=== PATIENT | female | born 1960 | race Caucasian/White ===

== ENCOUNTER 2024-04-13 10:52 | Outpatient (REF) | payer BC, SELFPAY ==
[2024-04-13 12:22] LABS: Bilirubin Negative (Negative); Blood Negative (Negative); Clarity Sl Cloudy (Clear); Glucose Negative (Negative); Ketones Negative (Negative); Leukocyte Esterase Trace (Negative); Nitrite Negative (Negative); Specific Gravity >= 1.030 (1.005-1.025); Urobilinogen 0.2 mg/dL (Up to 0.2); pH 5.5 (5-8)
[2024-04-13 12:36] LABS: Bacteria Moderate HPF (Negative); C & S Indicated? No; Crystals Negative HPF (Negative); Epithelial Cells Many HPF (Negative); Mucus Trace (Negative); RBC 0-2 HPF (0-2)
== END 2024-04-13 10:53 | disposition home or self-care (01) ==
LOC: LBN 10:52
PROVIDERS: PCP Nurse Practitioner Family; Visit Provider Nurse Practitioner Family
DX: R39.9 Unspecified symptoms and signs involving the genitourinary system (principal)
CPT/HCPCS: 81003; 81015

== ENCOUNTER 2024-05-12 02:10 | Outpatient (CLI) | payer BC, SELFPAY ==
--- NOTE | 2024-05-12 07:15 | DI.MAMMO_ITS ---
Exam(s) MAMMO SCREENING EXAM: MAMMO SCREENING CLINICAL HISTORY: screening,Z12.39 TECHNIQUE: Mammograms were interpreted according to the usual protocol including computer analysis w [employer] CAD system, tomosynthesis and C-view imaging. COMPARISON: 2014 through 2021 FINDINGS: The breasts are composed of scattered fibroglandular densities, Breast Density category B. No suspicious masses or suspicious microcalcifications are seen. No skin thickening or abnormal axillary lymph nodes are seen. There has been no significant change from prior exams. IMPRESSION: BI-RADS Category 1, Negative mammogram Yearly screening mammography is recommended. Breast Density - Category B, scattered fibroglandular densities. A negative radiographic report should not delay biopsy if a dominant or clinically suspicious mass is present. Up to ten percent of cancers are not identified on mammography. A negative report may reinforce clinical impression. Adenosis and dense breasts may obscure an underlying neoplasm. False positive reports average 6 to 10%. Patient will receive a letter notifying them of these results.
== END 2024-05-12 02:30 ==
LOC: DI 02:10
PROVIDERS: PCP Nurse Practitioner Family; Visit Provider Nurse Practitioner Family
DX: Z12.31 Encounter for screening mammogram for malignant neoplasm of breast (principal); R92.323 Mammographic fibroglandular density, bilateral breasts
CPT/HCPCS: 77063; 77067

== ENCOUNTER 2024-06-07 04:56 | Outpatient (CLI) | payer BC, SELFPAY ==
--- NOTE | 2024-06-07 14:20 | W.NUTRFU ---
Date of service: 06/07/24 Time of Service: 13:00 Nutrition Note NOTE: Trinh requested nutrition referral from provider for another resource to help her with her current weight loss goals. Trinh weighed 271lbs with no shoes, clothes on, no jacket. This is almost another 3 pound weight loss from her provider appt on 05/21/24. She is on 5mg weekly dose of terzepatide and finding no negative side effects (experienced some chills at initiation but has subsided). She affirms less appetite and quicker to fullness, less thinking about food. She is not completely numbers-focused in her approach - tends to work more on habits. Working on increasing physical activity now that she is s/p R knee replacement from last February. She reports no food allergies. She denies being a selective eater except she will not eat seafood - she takes a fish oil supplement. We reviewed nutrition recommendations: -periodically would be a good idea to track added sugar intake and see where she lands in comparison with recommendation of 25g or less per day -periodically track fiber intake and compare with recommendation of at least 25g per day -periodically track protein intake and compare with recommendation of at least 100g per day and ideally 135g per day form lean animal and plant sources. -consider 1800kcals as current goal for daily calories when looking into sample menus -consider taking MVI supplement (make sure it contains iodine in it) -Consider vitamin D3 supplementation at 4,000IU during winter and 2,000IU summer months -aim for adequate calcium intake by choosing lowfat dairy, broccoli, almonds, beans and other high Ca sources along with weight bearing exercise routinely. reviewed some sample menus with her, but Trinh already doing things great and avoiding many pitfalls such as sugary beverages, eating out/take out food, avoiding greasy/fried foods and trying to eat 3 meals and limiting snacks to 2-3 per day. Encouraged snack times to include a veggie and protein source most opportunities. Trinh took my card to contact for any additional support Time Spent in Nutritional Counseling and Treatment: 25 min
== END 2024-06-07 04:57 | disposition home or self-care (01) ==
LOC: DS 04:57
PROVIDERS: PCP Nurse Practitioner Family; Visit Provider Dietitian, Registered
DX: Z71.3 Dietary counseling and surveillance (principal)
CPT/HCPCS: 00123; 97802

== ENCOUNTER 2024-07-08 15:44 | Outpatient (CLI) | payer BC, SELFPAY ==
--- NOTE | 2024-07-08 13:15 | DI.RAD_ITS ---
Exam(s) XR KNEE RT 3V AP,LAT,SCHUYLER EXAM: XR KNEE RT 3V AP,LAT,SCHUYLER CLINICAL HISTORY: RIGHT KNEE PAIN. TECHNIQUE: 2D digital imaging was performed. Three views. COMPARISON: No exams were available for comparison FINDINGS: BONES: No acute fracture is present. Total knee prosthesis. Mild lucency around the tibial componen t which could indicate loosening. There are no prior comparison exams. JOINTS: Lateral patellar tilt and lateral patellar deviation.. No joint effusion is seen. SOFT TISSUE: Normal. IMPRESSION: Lucency adjacent to the tibial component of the prosthesis could indicate loosening. DATA REPOSITORY: RADIATION DOSE DELIVERED:
== END 2024-07-08 15:45 | disposition home or self-care (01) ==
LOC: DIORS 15:44
PROVIDERS: PCP Nurse Practitioner Family; Visit Provider Student in an Organized Health Care Education/Training Program
DX: Z96.651 Presence of right artificial knee joint (principal); Z47.1 Aftercare following joint replacement surgery
CPT/HCPCS: 73562

== ENCOUNTER 2024-07-20 03:54 | Outpatient (CLI) | payer BC, MEDICARE, SELFPAY ==
[2024-07-20 13:21] LABS: ESR 12 mm/hr (0-30)
[2024-07-20 14:24] LABS: TSH (W/Ref FT4) 3.61 uIU/mL (0.36-3.74)
[2024-07-20 14:36] LABS: C-Reactive Protein < 0.50 mg/dL (<or=0.5)
== END 2024-07-20 03:55 | disposition home or self-care (01) ==
LOC: LBO 03:57
PROVIDERS: PCP Nurse Practitioner Family; Visit Provider Student in an Organized Health Care Education/Training Program
DX: E03.9 Hypothyroidism, unspecified (principal); Z96.651 Presence of right artificial knee joint
CPT/HCPCS: 36415; 85652; 84443; 86140

== ENCOUNTER 2024-11-05 02:54 | Outpatient (CLI) | payer BC, SELFPAY ==
[2024-11-05 08:43] LABS: Calculated LDL 83 mg/dL (<100); Cholesterol 166 mg/dL (<200); HDL Cholesterol 73 mg/dL (>or=50); Triglyceride 52 mg/dL (<150)
[2024-11-05 09:14] LABS: Hemoglobin A1C 5.3 % (<5.7)
== END 2024-11-05 02:55 | disposition home or self-care (01) ==
LOC: LBO 02:54
PROVIDERS: PCP Nurse Practitioner Family; Referring Provider Nurse Practitioner Family; Visit Provider Nurse Practitioner Family
DX: Z00.00 Encounter for general adult medical examination without abnormal findings (principal)
CPT/HCPCS: 36415; 80061; 83036

== ENCOUNTER 2024-12-12 23:34 | Emergency (ER) | payer BC, SELFPAY ==
[2024-12-12 23:36] VITALS: BP 139/88; PULSE 72; RESP 18; O2SAT 98
--- NOTE | 2024-12-12 23:48 | W.ED.GENAD ---
Discharge Plan Disposition Patient Disposition: Home Condition: Good Discharge Details Clinical Impression: Tick bite Primary Care Provider: Amy Hayes ED Provider: Brandon Ramirezs and New Rx's Prescriptions: Continued levothyroxine 137 mcg tablet 137 mcg PO DAILY Qty: 90 3RF tirzepatide (weight loss) 12.5 mg/0.5 mL pen injector 12.5 mg subcut QWEEK Qty: 2 0RF Discharge Instructions Additional Instructions: This looks more like a local reaction to the bite. Warm compresses on and off during the day for the next few days. Your laboratory studies are reassuring at this time. A tick and Lyme panel has been sent and is pending. Follow-up with primary care. Return to ED for high spiking fevers, confusion, severe worsening headache, other concerns. Referrals: Amy Hayes APRN [Primary Care Provider] - [facility] General Mode of arrival: ambulatory. Date/Time Provider Initiated Documentation: 12/12/24 23:48. Limitations to Documentation: no limitations. Information obtained by: patient and RN notes reviewed. HPI Narrative: Patient presents to ED for evaluation of potential bull's-eye lesion associated with tick bite. Patient had found a tick on the back of her left thigh Friday. This was removed by her and thought to be intact. She was treated with prophylactic dose of doxycycline. She was told to watch for any evidence of a rash. Tonight she noted some erythema around the bite itself. She has had mild headache today, some joint pain in the knee and back. She denies fever. She has some pain around the bite itself. Related Data Home Medications ?Medication ?Instructions ?Recorded ?Confirmed levothyroxine 137 mcg tablet 137 mcg PO DAILY #90 tabs 07/20/24 12/12/24 tirzepatide (weight loss) 12.5 12.5 mg (0.5 mL) subcut QWEEK #2 mL 11/30/24 12/12/24 mg/0.5 mL subcutaneous pen injector Previous Rx's ?Medication ?Instructions ?Recorded levothyroxine 137 mcg tablet 137 mcg PO DAILY #90 tabs 07/20/24 tirzepatide (weight loss) 12.5 12.5 mg (0.5 mL) subcut QWEEK #2 mL 11/30/24 mg/0.5 mL subcutaneous pen injector Allergies Allergy/AdvReac Type Severity Reaction Status Date / Time No Known Allergies Allergy Verified 12/12/24 23:40 General Stated Complaint: RashLesion MADAI: 4 Exam Narrative Exam Narrative: Const: WDWN female in NAD. VS per triage. HEENT: NC/AT. Normal facial exam. Neck: Supple. Trachea midline. Lungs: Normal respiratory effort. Neuro: A+O x 3. Normal speech, mentation, gait. Cranial nerves II - XII grossly intact. No gross motor or sensory deficit. Ext: No C/C/E. Skin: Scab present on the distal, posterior?medial thigh with mild surrounding erythema. There is no significant tenderness or fluctuance. Course Vital Signs Vital signs: Vital Signs Pulse 72 12/12/24 23:36 Respiratory Rate 18 12/12/24 23:36 Blood Pressure 139/88 12/12/24 23:36 Pulse Oximetry 98 12/12/24 23:36 Pulse 72 12/12/24 23:36 Respiratory Rate 18 12/12/24 23:36 Blood Pressure 139/88 12/12/24 23:36 Blood Pressure Position Sitting 12/12/24 23:36 Pulse Oximetry 98 12/12/24 23:36 Oxygen Delivery Method Room Air 12/12/24 23:36 Oxygen Flow Rate 0 12/12/24 23:36 Medical Decision Making Patient presenting to ED with concern for possible Lyme. The mild erythema around the previous area where the tick was embedded is not classic for the bull's-eye lesion. Suspect this is more reactionary and patient would probably benefit from warm compresses and local wound care. She does have some joint discomfort and headache today. She is not febrile here. I do not think this is acute Lyme. However, given her mild symptoms we will obtain a CBC with LFTs as well as send a tick and Lyme panel. CBC and LFTs are normal. Given lack of thrombocytopenia and elevated LFTs we will hold off on treating for Lyme. Suggest warm compress to the area. Follow-up with primary care, pending results of tick and Lyme panel. Return precautions provided. Lab Data Lab results reviewed: Yes I reviewed the patient's lab results. 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 (Acute) Painful total knee replacement, right (Acute) History of right knee joint replacement (Acute) Screening for breast cancer (Acute) Pain of right thumb (Acute) Knee pain, right (Acute) Morbid obesity (Acute) Hypothyroidism (Chronic) Medical History (Updated 12/13/24 @ 01:02 by Brandon Ramirez MD) Elevated cholesterol Constipation BMI 45.0-49.9, adult Surgical History History of appendectomy History of bilateral knee replacement Family History (Updated 11/30/24 @ 10:54 by Amy Hayes APRN) Father Heart disease heart attack at 64- Brother Hyperlipidemia Cancer skin Social History Smoking/Tobacco Use Status: Never Second Hand Exposure: No Smoking risk assessment performed?: Yes Alcohol Intake: never Drug use: Never Adopted: No Caregiver/Support person: No Household members: spouse Housing: house Number of Children: 1 number of grandchildren: 0 Education Level: college Do you need help understanding health information?: Rarely current occupation: Retired from [employer] Pets and animals: Yes (1) Pets and animals: dog(s) Sexually active: Yes Current gender identity: female What is your relationship status?: How often do you talk on the phone with friends or family?: three or more times per week How often do you get together with friends or relatives?: twice per week Do you belong to any clubs or organized social groups?: no Panel score (0-1 are the most socially isolated patients): 2 Special kyle needs: No Seatbelt use: always Drive intox or ride w/intox electric pile driver operator: No
[2024-12-13 00:23] LABS: Abs Immature Grans 0.02 10^3/uL (0.0-0.06); Absolute Basophil Count 0.02 10^3/uL (0.0-0.2); Absolute Eosinophil Count 0.22 10^3/uL (0.0-0.7); Absolute Lymphocyte Count 1.67 10^3/uL (1.2-3.4); Absolute Neutrophil Count 3.86 10^3/uL (1.2-6.7); Basophils % 0.3 %; Eosinophils % 3.6 %; HCT 39.1 % (36.0-46.0); HGB 12.9 g/dL (11.2-15.7); Immature Grans % 0.3 %; MCH 28.6 pg (27.0-33.0); MCV 87 fL (80-95); Monocytes % 6.5 %; Neutrophils % 62.3 %; Platelet Count 188 10^3/uL (130-400); RBC 4.51 10^6/uL (3.93-5.22); RDW 13.3 % (11.7-14.6); RDW-SD 42.2 fL; WBC 6.19 10^3/uL (4.4-10.8)
[2024-12-13 00:51] LABS: ALT 21 U/L (14-59); AST 19 U/L (15-37); Albumin 3.8 g/dL (3.4-5.0); Alkaline Phosphatase 75 U/L (46-116); Bilirubin, Direct 0.1 mg/dL (0.0-0.2); Bilirubin, Total 0.4 mg/dL (0.2-1.0); Total Protein 7.7 g/dL (6.4-8.2)
[2024-12-14 11:28] LABS: Lyme Ab w Rflx to Lyme Confirm Negative (Negative)
[2024-12-15 23:28] LABS: Anaplasma phagocytophilum Negative (Negative); B. miyamotoi PCR Negative (Negative); Babesia divergens/MO-1 Negative (Negative); Babesia duncani Negative (Negative); Babesia microti Negative (Negative); Ehrlichia chaffeensis Negative (Negative); Ehrlichia ewingii/canis Negative (Negative); Ehrlichia muris eauclairensis Negative (Negative)
== END 2024-12-13 01:13 | disposition home or self-care (01) ==
PROVIDERS: Emergency Provider Emergency Medicine; PCP Nurse Practitioner Family
DX: S70.362A Insect bite (nonvenomous), left thigh, initial encounter (principal); W57.XXXA Bitten or stung by nonvenomous insect and other nonvenomous arthropods, initial encounter
CPT/HCPCS: 99283; 99282; 80076; 87798; 85025; 86618

== ENCOUNTER 2024-12-14 02:22 | Outpatient (CLI) | payer BC, SELFPAY ==
[2024-12-17 16:39] LABS: Apolipoprotein B, Serum 86 mg/dL (48-124); Beta VLDL Cholesterol Not Detected mg/dL (<15); Beta VLDL Triglycerides Not Detected mg/dL (<15); Cholesterol, Total, CDC 187 mg/dL; Chylomicron Cholesterol Not Detected; Chylomicron Triglycerides Not Detected; HDL Cholesterol, CDC 54 mg/dL (>=50); Interpretation Normal; LDL Cholesterol 117 mg/dL; LDL Triglycerides 30 mg/dL (<=50); Lp(a) Cholesterol <5 mg/dL (<5); LpX Not detected; Triglycerides, CDC 79 mg/dL; VLDL Cholesterol 16 mg/dL (<30); VLDL Triglycerides 35 mg/dL (<120)
== END 2024-12-14 02:23 | disposition home or self-care (01) ==
LOC: LBO 02:22
PROVIDERS: PCP Nurse Practitioner Family; Visit Provider Nurse Practitioner Family
DX: Z82.49 Family history of ischemic heart disease and other diseases of the circulatory system (principal); E78.00 Pure hypercholesterolemia, unspecified
CPT/HCPCS: 36415; 80061; 82172; 82664

== ENCOUNTER 2025-03-17 03:18 | Outpatient (CLI) | payer BC, SELFPAY ==
--- NOTE | 2025-03-17 06:15 | DI.US_ITS ---
Exam(s) US RENAL EXAM: US RENAL CLINICAL HISTORY: PLEASE DO PVR,? RETENTION,S/P TOTAL HYST,URINARY INCONTINENCE TECHNIQUE: Ultrasound of both kidneys performed using standard protocol. COMPARISON: No exams were available for comparison FINDINGS: RIGHT KIDNEY: Measures 11.4 cm in length. No cysts evident. Normal cortical thickness and corticomedullary differentiation .No solid masses No intrarenal calculi nor hydronephrosis. LEFT KIDNEY: Measures 11.8 cm in length. No cysts evident. Normal cortical thickness and corticomedullary differentiaion. No solids masses. No intrarenal calculi nor hydonephrosis. URINARY BLADDER: Prevoid volume is 62 cc Postvoid volume is 0 cc No evidence of bladder mass nor diverticuli. Ureterovesical jets: The right ureterovesical jet was visualized. The left was not visualized. IMPRESSION: 1. No significant focal ultrasound findings in the kidneys. Both kidneys exhibit normal size. No hydronephrosis. 2. No significant postvoid residual urine in the bladder. DATA REPOSITORY:
--- NOTE | 2025-03-17 14:27 | DI.DEXA_ITS ---
Exam(s) XR DEXA BONE DENSITY W/WO JOSE EXAM: XR DEXA BONE DENSITY W/WO JOSE CLINICAL HISTORY: SCREENING FOR OSTEOPOROSIS,Z13.820 TECHNIQUE: [employer] C densitometer analysis of left hip, lumbar spine and left forearm. Lateral survey image of the thoracic and lumbar spine. COMPARISON: No exams were available for comparison FINDINGS: Lateral view of the thoracic and lumbar spine shows no evidence of compression fractures. Bone mineral density measurements of the lumbar spine correspond to a total T- score of 0.0, in the normal range. Bone mineral density measurements of the left hip correspond to a total T-score of -0.2. The femoral neck T-score is -0.9, in the normal range.. Theleft forearm bone mineral density measurements correspond to a T-score of the distal 3rd of 0.3, in the normal range.. IMPRESSION: Normal bone mineral density.
== END 2025-03-17 03:38 ==
PROVIDERS: PCP Nurse Practitioner Family; Visit Provider Nurse Practitioner Family
DX: Z13.820 Encounter for screening for osteoporosis (principal); R32 Unspecified urinary incontinence
CPT/HCPCS: 76770; 77080

== ENCOUNTER → 2025-05-16 02:25 | Outpatient (CLI) | payer BC, SELFPAY ==
--- NOTE | 2025-05-16 06:45 | DI.MAMMO_ITS ---
Exam(s) MAMMO SCREENING EXAM: MAMMO SCREENING CLINICAL HISTORY: screening,z12.39. TECHNIQUE: Bilateral full field digital CC and MLO mammographic images were obtained with 3D tomosynthesis and utilizing computer aided detection (CAD). COMPARISON: Prior mammograms were reviewed. FINDINGS: There has been no significant change in the appearance and distribution of the fibroglandular tissue. There are no CAD designations. There are no new spiculated masses nor malignant appearing microcalcification groups. There is no significant architectural distortion nor skin thickening-retraction. IMPRESSION: No radiographic evidence of malignancy. BI-RADS Category 1 - Negative Breast Density - Category B - There are scattered areas of fibroglandular density. Breast density Category C or D implies that the patient has dense breast tissue. Dense breast tissue can make it harder to find cancer on a mammogram. Dense breast tissue is also associated with an increased risk of breast cancer. This information about the result of the mammogram report was provided to the patient to raise their awareness. Use this report when you speak with the patient about their risks for breast cancer, which includes their family history. At that time, you may recommend additional screening tests (Ultrasound or MRI) as these tests may add significant information. A negative radiographic report should not delay biopsy if a dominant or clinically suspicious mass is present. Up to ten percent of cancers are not identified on mammography. A negative report may reinforce clinical impression. Adenosis and dense breasts may obscure an underlying neoplasm. False positive reports average 6 to 10%. Patient will receive a letter notifying them of these results.
== END ==
PROVIDERS: PCP Nurse Practitioner Family; Visit Provider Nurse Practitioner Family
DX: Z12.31 Encounter for screening mammogram for malignant neoplasm of breast (principal)
CPT/HCPCS: 77063; 77067

== ENCOUNTER 2025-06-22 10:41 | Outpatient (CLI) | payer BC, SELFPAY ==
[2025-06-22 11:41] LABS: TSH (W/Ref FT4) 1.79 uIU/mL (0.55-4.78)
== END 2025-06-22 10:42 | disposition home or self-care (01) ==
LOC: LBO 10:42
PROVIDERS: PCP Nurse Practitioner Family; Visit Provider Nurse Practitioner Family
DX: E03.9 Hypothyroidism, unspecified (principal)
CPT/HCPCS: 36415; 84443